=== PATIENT | female | born 1935 | race Caucasian/White ===

== ENCOUNTER 2018-02-05 13:06 | Inpatient (IN) | payer MEDICARE, BC ==
[2018-02-05] MEDS ORDERED: NITROGLYCERIN OINT 1 INCH/GM PACKET TOPICAL STA (13:22)
[2018-02-05] MEDS ORDERED: ASPIRIN 81 MG PO STA (13:22)
--- NOTE | 2018-02-05 13:25 | ED ---
General Adult HPI - General Chief complaint: Chest Pain Stated complaint: chest pain Time Seen by Provider: 02/05/18 13:13 Source: patient, RN notes reviewed Mode of arrival: wheelchair Limitations: no limitations - History of Present Illness Initial comments: Patient is a pleasant 82-year-old female presenting to the emergency Department with chest discomfort. Symptoms have been intermittent over the past 3 weeks. Discomfort is mild at this time rated 2/10. Patient is unable to describe type of discomfort she is experiencing. Patient states at times there is radiation to the left arm or back however none at this time. No associated dyspnea or diaphoresis. Patient has occasional nausea. Patient did question if her symptoms were caused by indigestion and did go see the ENT today prior to arrival. No leg pain or leg swelling. No cough or fever. Patient Did have similar symptoms once a few years ago and her workup at that time was reported as negative. Patient is not experiencing palpitations. - Related Data Home Medications Medication Instructions Recorded Confirmed Enalapril/Hydrochlorothiazide 0.5 tab PO DAILY 11/12/13 02/05/18 [Enalapril-Hctz 10-25 mg Tablet] Omeprazole 40 mg PO AC-BRKFST 11/12/13 02/05/18 Ascorbic Acid [Vitamin C] 500 mg PO DAILY 02/05/18 02/05/18 Vitamin B Complex 1 cap PO DAILY 02/05/18 02/05/18 Allergies Allergy/AdvReac Type Severity Reaction Status Date / Time codeine AdvReac Vomiting Verified 02/05/18 14:50 Review of Systems ROS Statement: Those systems with pertinent positive or pertinent negative responses have been documented in the HPI. ROS Other: All systems not noted in ROS Statement are negative. Constitutional: Denies: fever Eyes: Denies: eye pain ENT: Denies: ear pain Respiratory: Denies: cough, dyspnea Cardiovascular: Reports: chest pain. Denies: palpitations Endocrine: Denies: fatigue Gastrointestinal: Reports: nausea. Denies: abdominal pain, vomiting Genitourinary: Denies: dysuria Musculoskeletal: Denies: back pain Skin: Denies: rash Neurological: Denies: weakness Past Medical History Past Medical History: GERD/Reflux, Hypertension, Osteoarthritis (OA) History of Any Multi-Drug Resistant Organisms: None Reported Past Surgical History: Appendectomy, Bladder Surgery, Cholecystectomy, Hysterectomy, Orthopedic Surgery, Tonsillectomy Additional Past Surgical History / Comment(s): surg on vocal cords,carpel tunnel , yuliet.cataracts and hemorrhoids Past Anesthesia/Blood Transfusion Reactions: No Reported Reaction Smoking Status: Never smoker - Past Family History Father Family Medical History: Cancer General Exam Limitations: no limitations General appearance: alert, in no apparent distress Head exam: Present: atraumatic Eye exam: Present: normal appearance, PERRL Neck exam: Present: normal inspection Respiratory exam: Present: normal lung sounds bilaterally. Absent: chest wall tenderness Cardiovascular Exam: Present: tachycardia, normal heart sounds Expanded Peripheral pulses: 2+: Radial (R), Radial (L), Posterior Tibialis (R), Posterior Tibialis (L) GI/Abdominal exam: Present: soft. Absent: tenderness Extremities exam: Present: normal inspection. Absent: pedal edema, calf tenderness Back exam: Present: normal inspection. Absent: tenderness Neurological exam: Present: alert Psychiatric exam: Present: normal affect, normal mood Skin exam: Present: normal color. Absent: rash Course Vital Signs 02/05/18 02/05/18 02/05/18 13:07 13:30 14:20 Temperature 98.2 F Pulse Rate 139 H 113 H 105 H Respiratory 20 18 Rate Blood Pressure 164/78 133/77 O2 Sat by Pulse 97 100 Oximetry 02/05/18 14:30 Temperature Pulse Rate 100 Respiratory Rate Blood Pressure O2 Sat by Pulse Oximetry EKG Findings - EKG Comments: EKG Findings:: Sinus tachycardia 124. VA 152. QRS 82. QT 308. QTC 442. Left axis. Normal QRS. No acute ST change. Medical Decision Making - Medical Decision Making Patient reevaluated and resting comfortably in bed. No discomfort at this time. Heart rate has improved to 109. Patient and family updated on results and plan. D-dimer was slightly elevated and CT scan of the chest has been ordered. Case was discussed in detail with Dr. Lui, who will admit for hospital call. - Lab Data Result diagrams: 02/05/18 13:41 02/05/18 13:41 Lab Results 02/05/18 02/05/18 02/05/18 Range/Units 13:41 13:41 13:41 WBC 4.6 (3.8-10.6) k/uL RBC 4.29 (3.80-5.40) m/uL Hgb 13.5 (11.4-16.0) gm/dL Hct 42.1 (34.0-46.0) % MCV 98.1 (80.0-100.0) fL MCH 31.6 (25.0-35.0) pg MCHC 32.2 (31.0-37.0) g/dL RDW 12.2 (11.5-15.5) % Plt Count 242 (150-450) k/uL Neutrophils % 73 % Lymphocytes % 13 % Monocytes % 8 % Eosinophils % 2 % Basophils % 0 % Neutrophils # 3.4 (1.3-7.7) k/uL Lymphocytes # 0.6 L (1.0-4.8) k/uL Monocytes # 0.4 (0-1.0) k/uL Eosinophils # 0.1 (0-0.7) k/uL Basophils # 0.0 (0-0.2) k/uL PT (9.0-12.0) sec INR (<1.2) APTT (22.0-30.0) sec D-Dimer (<0.60) mg/L FEU Sodium 142 (137-145) mmol/L Potassium 3.8 (3.5-5.1) mmol/L Chloride 108 H (98-107) mmol/L Carbon Dioxide 25 (22-30) mmol/L Anion Gap 9 mmol/L BUN 28 H (7-17) mg/dL Creatinine 0.95 (0.52-1.04) mg/dL Est GFR (CKD-EPI)AfAm 64 (>60 ml/min/1.73 sqM) Est GFR (CKD-EPI)NonAf 56 (>60 ml/min/1.73 sqM) Glucose 125 H (74-99) mg/dL Calcium 9.9 (8.4-10.2) mg/dL Magnesium 2.0 (1.6-2.3) mg/dL Total Bilirubin 0.5 (0.2-1.3) mg/dL AST 27 (14-36) U/L ALT 38 (9-52) U/L Alkaline Phosphatase 67 (38-126) U/L Total Creatine Kinase 33 (30-135) U/L CK-MB (CK-2) 0.6 (0.0-2.4) ng/mL CK-MB (CK-2) Rel Index 1.8 Troponin I <0.012 (0.000-0.034) ng/mL Total Protein 6.7 (6.3-8.2) g/dL Albumin 3.8 (3.5-5.0) g/dL 02/05/18 Range/Units 13:41 WBC (3.8-10.6) k/uL RBC (3.80-5.40) m/uL Hgb (11.4-16.0) gm/dL Hct (34.0-46.0) % MCV (80.0-100.0) fL MCH (25.0-35.0) pg MCHC (31.0-37.0) g/dL RDW (11.5-15.5) % Plt Count (150-450) k/uL Neutrophils % % Lymphocytes % % Monocytes % % Eosinophils % % Basophils % % Neutrophils # (1.3-7.7) k/uL Lymphocytes # (1.0-4.8) k/uL Monocytes # (0-1.0) k/uL Eosinophils # (0-0.7) k/uL Basophils # (0-0.2) k/uL PT 9.4 (9.0-12.0) sec INR 0.9 (<1.2) APTT 21.2 L (22.0-30.0) sec D-Dimer 1.50 H (<0.60) mg/L FEU Sodium (137-145) mmol/L Potassium (3.5-5.1) mmol/L Chloride (98-107) mmol/L Carbon Dioxide (22-30) mmol/L Anion Gap mmol/L BUN (7-17) mg/dL Creatinine (0.52-1.04) mg/dL Est GFR (CKD-EPI)AfAm (>60 ml/min/1.73 sqM) Est GFR (CKD-EPI)NonAf (>60 ml/min/1.73 sqM) Glucose (74-99) mg/dL Calcium (8.4-10.2) mg/dL Magnesium (1.6-2.3) mg/dL Total Bilirubin (0.2-1.3) mg/dL AST (14-36) U/L ALT (9-52) U/L Alkaline Phosphatase (38-126) U/L Total Creatine Kinase (30-135) U/L CK-MB (CK-2) (0.0-2.4) ng/mL CK-MB (CK-2) Rel Index Troponin I (0.000-0.034) ng/mL Total Protein (6.3-8.2) g/dL Albumin (3.5-5.0) g/dL - Radiology Data Radiology results: image reviewed (Chest x-ray shows no acute process) Disposition Clinical Impression: Chest pain Disposition: ADMITTED IP TO THIS HOSP Is patient prescribed a controlled substance at d/c from ED?: No Referrals: Jack Ford MD [Primary Care Provider] - 1-2 days Decision Time: 14:58
[2018-02-05 14:01] LABS: Basophils % (A) 0 %; Eosinophils # (A) 0.1 k/uL (0-0.7); Eosinophils % (A) 2 %; HCT 42.1 % (34.0-46.0); HGB 13.5 gm/dL (11.4-16.0); Lymphocytes # (A) 0.6 k/uL (1.0-4.8); Lymphocytes % (A) 13 %; MCH 31.6 pg (25.0-35.0); MCHC 32.2 g/dL (31.0-37.0); MCV 98.1 fL (80.0-100.0); Mean Platelet Volume 6.8; Monocytes # (A) 0.4 k/uL (0-1.0); Monocytes % (A) 8 %; Neutrophils # (A) 3.4 k/uL (1.3-7.7); Neutrophils % (A) 73 %; Platelet Count 242 k/uL (150-450); RBC 4.29 m/uL (3.80-5.40); RDW 12.2 % (11.5-15.5); WBC 4.6 k/uL (3.8-10.6)
[2018-02-05 14:11] LABS: Albumin 3.8 g/dL (3.5-5.0); Calcium 9.9 mg/dL (8.4-10.2); Potassium 3.8 mmol/L (3.5-5.1); Total Bilirubin 0.5 mg/dL (0.2-1.3); Total Protein 6.7 g/dL (6.3-8.2)
[2018-02-05 14:16] LABS: INR 0.9 (<1.2); Prothrombin Time 9.4 sec (9.0-12.0)
[2018-02-05 14:23] LABS: Creatine Kinase 33 U/L (30-135); Partial Thromboplastin Time 21.2 sec (22.0-30.0)
--- NOTE | 2018-02-05 14:30 | XR ---
EXAMINATION TYPE: XR chest 2V DATE OF EXAM: 02/05/2018 COMPARISON: NONE HISTORY: Shortness of breath TECHNIQUE: Frontal and lateral views of the chest are obtained. FINDINGS: Scattered senescent parenchymal changes noted. Hyperinflation compatible with COPD. No evidence for infiltrate. No evidence for atelectasis. Heart size is stable. Mediastinal structures are stable and grossly unremarkable. No evidence for hilar prominence. Degenerative changes dorsal spine. IMPRESSION: 1. No evidence for acute pulmonary disease.
[2018-02-05 14:35] LABS: Creatine Kinase MB 0.6 ng/mL (0.0-2.4); Troponin I <0.012 ng/mL (0.000-0.034)
[2018-02-05 14:37] LABS: D-Dimer 1.5 mg/L FEU (<0.60)
[2018-02-05] MEDS ORDERED: NITROGLYCERIN SL TABS 0.4 MG TAB SUBLINGUAL PRN (14:58)
--- NOTE | 2018-02-05 15:38 | CT ---
EXAMINATION TYPE: CT angio chest DATE OF EXAM: 02/05/2018 COMPARISON: None HISTORY: Chest pain CT DLP: 332.8 mGycm CONTRAST: CT chest with contrast and 3D reconstruction with MIP imaging is performed with IV Contrast, patient injected with 100 mL of Isovue 370. Contrast-enhanced CT of the chest was performed through the course of the pulmonary arteries with beena g and mediastinal window settings submitted. 3D reconstruction with MIP imaging was also performed. PULMONARY ARTERIES: The pulmonary arteries and their major tributaries are patent. I do not see ashutosh dence for sizable filling defect to suggest pulmonary embolic process. LUNGS: The lungs are clear and free of infiltrate. No evidence for atelectasis. No pulmonary nodule or mass is detected. No pleural effusion. MEDIASTINUM: Thoracic aorta is of normal caliber,however, evaluation is limited given timing of the contrast bolus. If there is concern for thoracic aortic pathology consider HUE. Correlate clinicall y . The heart is not enlarged. No evidence for mediastinal mass. No mediastinal lymph nodes greater than 1cm. HILAR STRUCTURES: No evidence for mass. No hilar lymph nodes greater than 1 cm. UPPER ABDOMEN: No significant abnormality is seen. Renal cystic changes noted. IMPRESSION: 1. No evidence for Pulmonary embolism at this time.
--- NOTE | 2018-02-05 17:51 | HP ---
HISTORY AND PHYSICAL DATE OF SERVICE: 02/05/2018 CHIEF COMPLAINTS: Chest pain. HISTORY OF PRESENT ILLNESS: This 82-year-old woman with a past medical history of multiple medical problems including GERD, hypertension, DJD, bladder surgery, cholecystectomy being followed by Dr. Ford in the outpatient setting, was complaining of chest pain on and off for several days. The pain is felt in the anterior part of the chest radiating to the back sometimes. The patient came to [facility] and was admitted to the hospital further evaluation and treatment. There is no history of radiation or other symptoms. No history of fever, rigors or chills. PAST MEDICAL HISTORY: History of GERD, hypertension, DJD, history of appendectomy, bladder surgery, cholecystectomy. MEDICATIONS: Prior to admission home medications are: 1. Vitamin B complex 1 p.o. daily. 2. Vitamin C 500 daily. 3. Omeprazole 40 mg daily. 4. Enalapril hydrochlorothiazide 10/21 0.5 mg daily. ALLERGIES: ALLERGIES ARE CODEINE. FAMILY HISTORY: History of cancer in the family. SOCIAL HISTORY: No history of smoking. No history of alcohol intake. REVIEW OF SYSTEMS: ENT: Diminished hearing and diminished vision. CARDIOVASCULAR as mentioned earlier. Respirations: No cough or hemoptysis. GI : No nausea or vomiting. no dysuria. Nervous system: No numbness or weakness. Allergy/Immunology: No asthma or hayfever. Musculoskeletal System: As mentioned earlier. Hematology/Oncology: No history of anemia. Endocrine: No history of diabetes or hypothyroidism. Constitutional: As mentioned earlier. Dermatology: Negative. Rheumatology: Negative. Psychiatry: As mentioned earlier. PHYSICAL EXAMINATION: The patient is alert and oriented times three. VITAL SIGNS: Pulse is 108, blood pressure 120/70, respirations 16, temperature 98.2, pulse ox 97% on 2 L. HEENT: Conjunctivae normal. NECK: No jugular venous distention. CARDIOVASCULAR: S1, S2 muffled. RESPIRATORY: Breath sounds diminished in the bases. No rhonchi. No crackles. ABDOMEN: Soft, nontender. No mass palpable. LEGS: Are no edema. No swelling. Central nervous system: Higher functions as mentioned earlier. Moves all four extremities. No focal deficits. Lymphatics: No lymph nodes palpable in the neck, axillae or groin. Skin: No ulcer. No rash. No bleeding. LAB STUDIES: WBC 12.8, hemoglobin 13.5, D. dimer 1.5, GFR is 125. ASSESSMENT: 1. Chest pain, possible unstable angina. 2. Hypertension. 3. History of degenerative joint disease. 4. History of gastroesophageal reflux disease. 5. History of appendectomy. 6. History of cholecystectomy. RECOMMENDATIONS AND DISCUSSION: Recommend to continue current medications. Rule out myocardial infarction. Cardiology consultation. Possible stress test. Resume the home medications. Guarded prognosis because of multiple complex medical issues. D-dimer slightly elevated but the CT angio of the chest was negative for PE. I would also recommend UA with micro. The chest x- ray which was reviewed personally by me showed no acute abnormality. Copy of this being forwarded to Dr. Ford who is the primary physician. MMROBEL / SONIAN: [id number] / MTDD
[2018-02-05 19:32] LABS: Appearance,Urine Clear (Clear); Bacteria,Urine Rare /hpf; Bilirubin,Urine Negative (Negative); Blood,Urine Negative (Negative); Color,Urine Yellow; Glucose,Urine (UA) Negative (Negative); Ketones,Urine Trace (Negative); Leukocyte Esterase,Urine Small (Negative); Nitrite,Urine Negative (Negative); PH, Urine 5.5 (5.0-8.0); Protein,Urine Negative (Negative); RBC,Urine 1 /hpf (0-5); Urobilinogen,Urine <2.0 mg/dL (<2.0); WBC,Urine 8 /hpf (0-5)
[2018-02-05 19:36] LABS: Specific Gravity,Urine 1.046 (1.001-1.035)
[2018-02-05] MEDS ORDERED: CALCIUM CARBONATE 500 MG CHEWABLE PO STA (19:59)
[2018-02-05] MEDS: NITROGLYCERIN OINT 1 INCH/GM PACKET TOPICAL SCH (20:02)
[2018-02-05 21:20] LABS: Creatine Kinase 30 U/L (30-135)
[2018-02-05 21:33] LABS: Creatine Kinase MB 0.7 ng/mL (0.0-2.4); Troponin I <0.012 ng/mL (0.000-0.034)
[2018-02-06] MEDS: NITROGLYCERIN OINT 1 INCH/GM PACKET TOPICAL SCH ×2 (01:07→02:52)
[2018-02-06 02:46] LABS: Basophils % (A) 1 %; Eosinophils # (A) 0.2 k/uL (0-0.7); Eosinophils % (A) 5 %; HCT 35.5 % (34.0-46.0); HGB 11.8 gm/dL (11.4-16.0); Lymphocytes # (A) 0.9 k/uL (1.0-4.8); Lymphocytes % (A) 21 %; MCH 31.9 pg (25.0-35.0); MCHC 33.1 g/dL (31.0-37.0); MCV 96.4 fL (80.0-100.0); Monocytes # (A) 0.4 k/uL (0-1.0); Monocytes % (A) 8 %; Neutrophils # (A) 2.6 k/uL (1.3-7.7); Neutrophils % (A) 62 %; Platelet Count 211 k/uL (150-450); RBC 3.69 m/uL (3.80-5.40); RDW 12.3 % (11.5-15.5); WBC 4.2 k/uL (3.8-10.6)
[2018-02-06 03:00] LABS: Calcium 9.3 mg/dL (8.4-10.2)
[2018-02-06 03:07] LABS: Creatine Kinase 23 U/L (30-135)
[2018-02-06 03:21] LABS: Creatine Kinase MB 0.5 ng/mL (0.0-2.4); Troponin I <0.012 ng/mL (0.000-0.034)
[2018-02-06] MEDS: ASCORBIC ACID 500 MG TAB PO SCH (08:00)
[2018-02-06] MEDS: LISINOPRIL-HCTZ 10-12.5 MG 1 EACH TAB PO SCH (08:00)
[2018-02-06] MEDS: PANTOPRAZOLE 40 MG TABLET PO SCH (08:00)
[2018-02-06] MEDS ORDERED: CAFFEINE CITRATE 60 MG/3 ML VIAL IV PRN (08:59)
[2018-02-06] MEDS ORDERED: REGADENOSON 0.4 MG/5 ML SYRINGE IV ONE (08:59)
[2018-02-06] MEDS ORDERED: NON-FORMULARY DRUG (Vitamin B Complex [Vitamin B Complex] 1 CAP) PO SCH (09:00)
[2018-02-06] MEDS ORDERED: ASPIRIN 81 MG PO SCH (09:00)
[2018-02-06] MEDS ORDERED: ASPIRIN 325 MG TAB PO SCH (09:00)
--- NOTE | 2018-02-06 09:32 | P.CRDCN ---
History of Present Illness History of present illness: This is a pleasant 82-year-old female past medical history significant for hypertension and gastroesophageal reflux disease. She denies history of coronary artery disease, dyslipidemia or diabetes mellitus. She has never seen a quality system manager for any reason. We have been asked to see her in consultation for chest pain. She states for the last 4 weeks she has been feeling a burning sensation in the mid-sternal region with radiation through to the back. She also describes feeling nauseated with the discomfort with no actual vomiting. The pain is intermittent with no specific aggravating or alleviating factors. Pain comes at rest mostly. She had been attributing this to her reflux disease for which she takes omeprazole. She went to see Dr. Shama Hernandez yesterday and he performed a scope in the office and told her her reflux was not the culprit of her pain and recommended she come here for evaluation. She denies radiation to the arm, neck or jaw. She denies shortness of breath, dizziness, palpitations or vomiting. At the time of my exam she is resting comfortably in bed and is pain free. She does describe feeling nauseated. Last night she had an episode after eating dinner of burning in her throat. This felt to her much more typical of her reflux. She was given a Tums and the burning subsided. This discomfort was different than the symptoms she has been feeling for the past 4 weeks. She states she is fairly active on a regular basis and walks up and down her long driveway daily for approximately 20 minutes. She does use a cane due to unsteady gait at times. EKG reveals sinus mechanism with no acute ST or T-wave abnormalities noted. Chest xray negative for an acute cardiopulmonary process. Laboratory data reviewed, WBC 4.2, hgb 11.8, plt 211, d-dimer 1.5, sodium 139, potassium 4.0, magnesium 2.0, creatinine 0.98, cardiac enzymes negative 3, LDL 95, HDL 64. Current cardiac medications include enalapril/hctz 10/25 mg daily. At the time of my exam: CONSTITUTIONAL: Denies fever. Denies chills. EYES: Denies blurred vision. Denies vision changes. Denies eye pain. EARS, NOSE, MOUTH & THROAT: Denies headache. Denies sore throat. Denies ear pain. CARDIOVASCULAR: Denies chest pain. Denies shortness of breath. Denies orthopnea. Denies PND. Denies palpitations. RESPIRATORY: Denies cough. GASTROINTESTINAL: Denies abdominal pain. Denies diarrhea. Denies constipation. Denies nausea. Denies vomiting. MUSCULOSKELETAL: Denies myalgias. INTEGUMENTARY: Denies pruitis. Denies rash. NEUROLOGIC: Denies numbness. Denies tingling. Denies weakness. PSYCHIATRIC: Denies anxiety. Denies depression. ENDOCRINE: Denies fatigue. Denies weight change. Denies polydipsia. Denies polyurina. GENITOURINARY: Denies burning, hematuria or urgency with micturation. HEMATOLOGIC: Denies history of anemia. Denies bleeding. Blood pressure 114/71 heart rate 99 afebrile and maintaining oxygen saturation on room air GENERAL: This is a 82-year-old female in no apparent distress at the time of my examination. HEENT: Head is atraumatic, normocephalic. Pupils are equal, round. Sclerae anicteric. Conjunctivae are clear. Mucous membranes of the mouth are moist. Neck is supple. There is no jugular venous distention. No carotid bruit is heard. LUNGS: Clear to auscultation no wheezes, rales or rhonchi. No chest wall tenderness is noted on palpation or with deep breathing. HEART: Regular rate and rhythm without murmurs, rubs or gallops. S1 and S2 heard. ABDOMEN: Soft, nontender. Bowel sounds are heard. No organomegaly noted. EXTREMITIES: No evidence of peripheral edema and no calf tenderness noted. VASCULAR: Radial and dorsalis pedis pulses palpated, no evidence of clubbing. NEUROLOGIC: Patient is awake, alert and oriented x3. ASSESSMENT Chest pain at rest, atypical for angina. An acute coronary event has been ruled out with no EKG evidence of ischemia and negative cardiac enzymes Hypertension Gastroesophageal reflux disease PLAN An acute coronary event has been ruled out with no EKG evidence of ischemia and negative cardiac enzymes. Obtain 2D echocardiogram and doppler study to assess cardiac structure and function. Perform Lexiscan stress test to assess for reversible cardiac ischemia. If stress test is normal she is stable from a cardiac perspective, if abnormal we will consider coronary angiography. Thank you kindly for this consultation. Nurse Practitioner note has been reviewed, I agree with a documented findings and plan of care. Patient was seen and examined. Past Medical History Past Medical History: GERD/Reflux, Hypertension, Osteoarthritis (OA) Additional Past Medical History / Comment(s): cataracats(has sx-lens implants), past colon polyps-benign. 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 History of Any Multi-Drug Resistant Organisms: None Reported Past Surgical History: Appendectomy, Bladder Surgery, Cholecystectomy, Hysterectomy, Orthopedic Surgery, Tonsillectomy Additional Past Surgical History / Comment(s): surg on vocal cords,carpel tunnel , yuliet.cataracts and hemorrhoids, lt knee replacement, colonoscopy Past Anesthesia/Blood Transfusion Reactions: No Reported Reaction Smoking Status: Former smoker - Past Family History Father Family Medical History: Cancer Mother Family Medical History: Myocardial Infarction ([place]) Medications and Allergies Home Medications Medication Instructions Recorded Confirmed Type Enalapril/Hydrochlorothiazide 0.5 tab PO DAILY 11/12/13 02/05/18 History [Enalapril-Hctz 10-25 mg Tablet] Omeprazole 40 mg PO AC-BRKFST 11/12/13 02/05/18 History Ascorbic Acid [Vitamin C] 500 mg PO DAILY 02/05/18 02/05/18 History Vitamin B Complex 1 cap PO DAILY 02/05/18 02/05/18 History Allergies Allergy/AdvReac Type Severity Reaction Status Date / Time codeine AdvReac Vomiting Verified 02/05/18 14:50 Physical Exam Vitals: Vital Signs Temp Pulse Pulse Resp BP BP Pulse Ox 02/06/18 04:00 16 02/06/18 03:31 98.6 F 71 16 116/65 97 02/06/18 00:00 98.3 F 76 16 104/64 97 02/05/18 20:00 16 02/05/18 19:21 98.7 F 91 16 108/69 96 02/05/18 16:45 98.2 F 116 H 18 144/74 96 02/05/18 16:31 98.3 F 110 H 18 100/55 98 02/05/18 16:10 108 H 16 120/70 97 02/05/18 15:40 101 H 18 121/67 97 02/05/18 15:10 109 H 18 120/57 98 02/05/18 14:40 102 H 18 98/78 98 02/05/18 14:30 100 02/05/18 14:20 105 H 02/05/18 13:30 113 H 18 133/77 100 02/05/18 13:07 98.2 F 139 H 20 164/78 97 Intake and Output 02/05/18 02/06/18 02/06/18 22:59 06:59 14:59 Other: Voiding Method Toilet Toilet # Voids 1 Weight 77 kg Results 02/06/18 02:18 02/06/18 02:18 Cardiac Enzymes 02/05/18 02/05/18 02/05/18 Range/Units 13:41 13:41 20:41 AST 27 (14-36) U/L CK-MB (CK-2) 0.6 0.7 (0.0-2.4) ng/mL Troponin I <0.012 <0.012 (0.000-0.034) ng/mL 02/06/18 Range/Units 02:18 AST (14-36) U/L CK-MB (CK-2) 0.5 (0.0-2.4) ng/mL Troponin I <0.012 (0.000-0.034) ng/mL Coagulation 02/05/18 Range/Units 13:41 PT 9.4 (9.0-12.0) sec APTT 21.2 L (22.0-30.0) sec Lipids 02/06/18 Range/Units 02:18 Triglycerides 47 (<150) mg/dL Cholesterol 168 (<200) mg/dL HDL Cholesterol 64 H (40-60) mg/dL CBC 02/05/18 02/06/18 Range/Units 13:41 02:18 WBC 4.6 4.2 (3.8-10.6) k/uL RBC 4.29 3.69 L (3.80-5.40) m/uL Hgb 13.5 11.8 (11.4-16.0) gm/dL Hct 42.1 35.5 (34.0-46.0) % Plt Count 242 211 (150-450) k/uL Comprehensive Metabolic Panel 02/05/18 02/06/18 Range/Units 13:41 02:18 Sodium 142 139 (137-145) mmol/L Potassium 3.8 4.0 (3.5-5.1) mmol/L Chloride 108 H 108 H (98-107) mmol/L Carbon Dioxide 25 27 (22-30) mmol/L BUN 28 H 25 H (7-17) mg/dL Creatinine 0.95 0.98 (0.52-1.04) mg/dL Glucose 125 H 102 H (74-99) mg/dL Calcium 9.9 9.3 (8.4-10.2) mg/dL AST 27 (14-36) U/L ALT 38 (9-52) U/L Alkaline Phosphatase 67 (38-126) U/L Total Protein 6.7 (6.3-8.2) g/dL Albumin 3.8 (3.5-5.0) g/dL Current Medications Generic Name Dose Route Start Last Admin Trade Name Freq PRN Reason Stop Dose Admin Ascorbic Acid 500 mg 02/06/18 12:00 Vitamin C PO 1200 [facility] Aspirin 81 mg 02/06/18 09:00 Aspirin PO DAILY [facility] Lisinopril/HCTZ 1 each 02/06/18 09:00 Zestoretic 10-12.5 PO DAILY [facility] Nitroglycerin 0.4 mg 02/05/18 14:58 Nitrostat SUBLINGUAL Q5M PRN Chest Pain Pantoprazole Sodium 40 mg 02/06/18 07:30 Protonix PO AC-BRKFST [facility] Sodium Chloride 10 ml 02/05/18 21:00 02/05/18 20:12 Saline Flush IV 10 ml BID [facility] Administration Intake and Output 02/05/18 02/06/18 02/06/18 22:59 06:59 14:59 Other: Voiding Method Toilet Toilet # Voids 1 Weight 77 kg 02/06/18 02:18 02/06/18 02:18
--- NOTE | 2018-02-06 10:05 | ECHOF ---
Referral Reason:cp MEASUREMENTS -------- HEIGHT: 167.6 cm WEIGHT: 76.7 kg BP: RVIDd: 2.1 cm (< 3.3) IVSd: 1.2 cm (0.6 - 1.1) LVIDd: 2.5 cm (3.9 - 5.3) LVPWd: 1.4 cm (0.6 - 1.1) IVSs: 1.5 cm LVIDs: 1.5 cm LVPWs: 1.4 cm LAESV Index (A-L): 20.86 ml/m Ao Diam: 3.4 cm (2.0 - 3.7) AV Cusp: 2.3 cm (1.5 - 2.6) LA Diam: 3.8 cm (2.7 - 3.8) MV E Shyam: 0.59 m/s MV DecT: 148 ms MV A Shyam: 1.05 m/s MV E/A Ratio: 0.57 RAP: 5.00 mmHg RVSP: 18.11 mmHg FINDINGS -------- Sinus rhythm. This was a technically adequate study. The left ventricular size is normal. There is mild concentric left ventricular hypertrophy. Overa ll left ventricular systolic function is normal with, an EF between 55 - 60 %. The right ventricle is normal in size. Normal LA size by volume 22+/-6 ml/m2. The right atrial size is normal. The aortic valve is trileaflet and appears structurally normal. The mitral valve leaflets are mildly thickened. There is trace mitral regurgitation. Trace tricuspid regurgitation present. There is no evidence of pulmonary hypertension. The right ventricular systolic pressure, as measured by Doppler, is 18.11mmHg. Trace/mild (physiologic) pulmonic regurgitation. The aortic root size is normal. IVC Not well visulized. There is no pericardial effusion. CONCLUSIONS -------- 1. Sinus rhythm. 2. This was a technically adequate study. 3. The left ventricular size is normal. 4. There is mild concentric left ventricular hypertrophy. 5. Overall left ventricular systolic function is normal with, an EF between 55 - 60 %. 6. Normal LA size by volume 22+/-6 ml/m2. 7. The aortic valve is trileaflet and appears structurally normal. 8. The mitral valve leaflets are mildly thickened. 9. There is trace mitral regurgitation. 10. Trace tricuspid regurgitation present. 11. There is no evidence of pulmonary hypertension. 12. Trace/mild (physiologic) pulmonic regurgitation. 13. The aortic root size is normal. 14. IVC Not well visulized. 15. There is no pericardial effusion. POTATO CHIP FRIER: Ivory Husain RDCS
--- NOTE | 2018-02-06 13:20 | NM ---
EXAMINATION TYPE: NM stress lexiscan cardiolite DATE OF EXAM: 02/06/2018 COMPARISON: NONE HISTORY: Chest pain TECHNIQUE: After the intravenous administration of 9.3 mCi Tc 99m Sestamibi - Cardiolite resting SPE CT images acquired 45 minutes post injection. The patient received 0.4mg Lexiscan, 26.1 mCi Tc 99m Sestamibi - Stress images obtained [address] injection FINDINGS: Review of stress and rest SPECT images demonstrates decreased radiopharmaceutical uptake along the in ferolateral left ventricle on stress as compared to rest images. Gated analysis shows normal wall mot ion with an estimated left ventricular ejection fraction of 81 %. IMPRESSION: Pharmacologically induced left ventricular myocardial ischemia as described. Consider echocardiograph ic correlation for elevated ejection fraction.
[2018-02-06] MEDS ORDERED: ALPRAZolam 0.5 MG TAB PO PRN (14:43)
[2018-02-06] MEDS ORDERED: ALPRAZolam 0.25 MG TAB PO PRN (14:43)
[2018-02-06] MEDS ORDERED: SODIUM CHLORIDE 0.9% 1,000 ML in EMPTY BAG 1 BAG IV ONE (14:43)
--- NOTE | 2018-02-06 15:37 | EST ---
EXERCISE STRESS AGE: 82 SEX: F HT: 66" WT: 169 PROTOCOL: Lexiscan Cardiolite Stress Test HEART RATE REST: 111 BLOOD PRESSURE REST: 129/96 MAXIMUM HEART RATE ACHIEVED: 159 MAXIMUM BLOOD PRESSURE: 129/95 85% MPHR: 116 100% MPHR: 136 INDICATIONS: Chest pain. CLINICAL INFORMATION: Baseline rhythm is sinus mechanism, rate of 111, normal axis and intervals, nonspecific ST-T wave changes, baseline blood pressure 129/96 mmHg. Patient received an injection of Lexiscan. Electrocardiographic monitoring revealed no evidence of diagnostic ischemic ST deviation. Cardiolite was injected per protocol. An episode of supraventricular tachycardia was noted and resolved spontaneously. CONCLUSION: 1. Nondiagnostic electrocardiograph stress testing with an episode of what appears to be AV taqueria reentry tachycardia. 2. Nuclear images will be reported separately. MMODL / IJN: [id number] /
--- NOTE | 2018-02-06 15:38 | P.PN ---
Progress Note - Text Lexiscan stress test reported as from a clot in his left ventricular myocardial ischemia with decreased radiopharmaceutical uptake along the inferior lateral left ventricle on stress compared to rest images. This has been explained to the patient and her daughter in detail, we recommend proceeding with cardiac catheterization. I have discussed the risks, benefits and alternative therapies for the above-mentioned procedure and for both sedation/analgesia as well as necessary blood product administration, if indicated, as they pertain to this patient. The patient has indicated understanding and acceptance of the risks and procedures discussed. Questions have been answered appropriately and she is agreeable to move forward with the above-stated procedure.
--- NOTE | 2018-02-06 16:01 | P.PN ---
Subjective 82-year-old admitted with chest pain mostly. To be gastroesophageal reflux disease underwent stress test which is positive for inducible ischemia because of which patient will undergo cardiac catheterization.Constitutional: Denied any fatigue denied any fever. Cardio vascular: denied any chest pain, palpitations Gastrointestinal denied any nausea vomiting Pulmonary: Denied any shortness of breath cough Neurologic denied any new focal deficits All inpatient medications were reviewed and appropriate changes in these medications as dictated in the interval history and assessment and plan. Objective - Vital Signs Vital signs: Vital Signs Temp 98.1 F 02/06/18 15:37 Pulse 120 H 02/06/18 15:37 Resp 18 02/06/18 15:37 BP 91/53 02/06/18 15:37 Pulse Ox 98 02/06/18 15:37 Intake & Output 02/05/18 02/06/18 02/06/18 18:59 06:59 18:59 Intake Total 440 Balance 440 Weight 77 kg Intake: Oral 240 Other 200 Other: Voiding Method Toilet Toilet Toilet # Voids 1 - Exam PHYSICAL EXAMINATION: GENERAL: The patient is alert and oriented x3, not in any acute distress. Well developed, well nourished. HEENT: Pupils are round and equally reacting to light. EOMI. No scleral icterus. No conjunctival pallor. Normocephalic, atraumatic. No pharyngeal erythema. No thyromegaly. CARDIOVASCULAR: S1 and S2 present. No murmurs, rubs, or gallops. PULMONARY: Chest is clear to auscultation, no wheezing or crackles. ABDOMEN: Soft, nontender, nondistended, normoactive bowel sounds. No palpable organomegaly. MUSCULOSKELETAL: No joint swelling or deformity. EXTREMITIES: No cyanosis, clubbing, or pedal edema. NEUROLOGICAL: Gross neurological examination did not reveal any focal deficits. SKIN: No rashes. - Labs CBC & Chem 7: 02/06/18 02:18 02/06/18 02:18 Labs: Abnormal Lab Results - Last 24 Hours (Table) 02/05/18 02/06/18 02/06/18 Range/Units 19:05 02:18 02:18 RBC (3.80-5.40) m/uL Lymphocytes # (1.0-4.8) k/uL Chloride 108 H (98-107) mmol/L BUN 25 H (7-17) mg/dL Glucose 102 H (74-99) mg/dL Total Creatine Kinase 23 L (30-135) U/L HDL Cholesterol 64 H (40-60) mg/dL Ur Specific [place] 1.046 H (1.001-1.035) Urine Ketones Trace H (Negative) Ur Leukocyte Esterase Small H (Negative) Urine WBC 8 H (0-5) /hpf Urine Bacteria Rare H (None) /hpf 02/06/18 Range/Units 02:18 RBC 3.69 L (3.80-5.40) m/uL Lymphocytes # 0.9 L (1.0-4.8) k/uL Chloride (98-107) mmol/L BUN (7-17) mg/dL Glucose (74-99) mg/dL Total Creatine Kinase (30-135) U/L HDL Cholesterol (40-60) mg/dL Ur Specific [place] (1.001-1.035) Urine Ketones (Negative) Ur Leukocyte Esterase (Negative) Urine WBC (0-5) /hpf Urine Bacteria (None) /hpf Assessment and Plan Plan: -Chest pain with positive stress test patient will undergo cardiac catheterization tomorrow -Gastroesophageal reflux disease -Hypertension
[2018-02-07] MEDS ORDERED: ASPIRIN 81 MG PO ONE (06:00)
[2018-02-07] MEDS ORDERED: ATORVASTATIN 80 MG TAB PO ONE (06:00)
[2018-02-07] MEDS: LISINOPRIL-HCTZ 10-12.5 MG 1 EACH TAB PO SCH (06:09)
[2018-02-07] MEDS: PANTOPRAZOLE 40 MG TABLET PO SCH (06:09)
[2018-02-07] MEDS ORDERED: VERAPAMIL 2.5 MG/ML 2 ML AMP ONE (10:02)
[2018-02-07] MEDS ORDERED: LIDOCAINE 1% INJ 10MG/ML (20 ML MDV) ONE (10:02)
[2018-02-07] MEDS ORDERED: HEPARIN SODIUM 1,000 UN/ML (10ML VL) ONE (10:02)
[2018-02-07] MEDS ORDERED: fentaNYL (PF) 50 MCG/ML 2 ML AMP ONE (10:02)
[2018-02-07] MEDS ORDERED: MIDAZOLAM 2 MG/2 ML VIAL ONE (10:24)
[2018-02-07] MEDS ORDERED: fentaNYL (PF) 50 MCG/ML 2 ML AMP IVP ONE (10:24)
[2018-02-07] MEDS ORDERED: LIDOCAINE 1% (PF) 10MG/ML VIAL SQ ONE (10:26)
[2018-02-07] MEDS ORDERED: MIDAZOLAM 2 MG/2 ML VIAL IVP ONE (10:27)
[2018-02-07] MEDS ORDERED: IV FLUID CONTINUATION 850 ML IV ONE (10:28)
[2018-02-07] MEDS ORDERED: VERAPAMIL SYRINGE (5 MG/10 ML) INTRAARTER ONE (10:28)
[2018-02-07] MEDS ORDERED: IOPAMIDOL-370 125ML BTL INJ ONE (10:41)
[2018-02-07] MEDS ORDERED: RX INFO: IV CONTRAST WAS GIVEN 1 EACH MISC MISCELLANE PRN (10:49)
[2018-02-07] MEDS ORDERED: SODIUM CHLORIDE 0.9% 1,000 ML IV SCH (11:00)
[2018-02-07 11:09] VITALS: RESP 18; TEMP 96.4
[2018-02-07] MEDS: ASCORBIC ACID 500 MG TAB PO SCH (11:20)
--- NOTE | 2018-02-07 11:44 | CC ---
CARDIAC CATHETERIZATION REPORT Mrs. Layne is an 82-year-old female with no prior documented coronary artery disease who presented to the hospital with symptoms of chest discomfort. She had no evidence of enzymatic changes and underwent a myocardial perfusion imaging that was reported showing evidence of stress induced ischemia. In view of that, recommendation made regarding cardiac catheterization. The procedures, risks and complication were discussed with the patient who is in full understanding and agreement. PROCEDURE: Patient was brought to record label intern in a fasting semi-sedated state after receiving fentanyl and Benadryl and achieving moderate conscious sedated state. Using Xylocaine anesthesia and Seldinger technique, a 6-Ecuadorean sheath was introduced in the right radial artery. Selective right and left coronary angiography performed using 5-Ecuadorean 3.5 bend right and left Chaparro catheter, multiple views of coronary artery including hemiaxial views were obtained. Following that a 5-Ecuadorean tight pigtail catheter was introduced in the left ventricle and a 30 degree BECKER view of the left ventricle was obtained. Following that, catheter and sheaths were removed, hemostasis was obtained with deployment of a TR band. There was no immediate complication. Patient was returned to her room in stable condition. Of note, the patient received 4000 units of intravenous heparin as well as intra-arterial verapamil. FINDINGS: LEFT MAIN: This is a short-sized vessel, bifurcating into left circumflex, left anterior descending artery. Left main coronary artery has no evidence of high-grade stenosis. LEFT ANTERIOR DESCENDING ARTERY: This is a large-sized vessel, reaching toward the apex with a wraparound apex segment, tortuous in the mid and distal segment, giving rise to a small diagonal branch. The left anterior descending artery has no evidence of high- grade stenosis. LEFT CIRCUMFLEX: This is a nondominant, large size vessel, giving rise to 2 obtuse marginal branches. The first one is very proximal right. The left circumflex as well as branches have no evidence of obstructive coronary artery disease. RIGHT CORONARY ARTERY: This is a dominant vessel, large in caliber, tortuous in the distal segment. The right coronary artery as well as it branches have no evidence of obstructive coronary artery disease. LEFT VENTRICULOGRAM: Left ventriculogram is performed in 30 degree BECKER view and revealed normal left ventricular size and systolic function. Ejection fraction 60%. There was no significant mitral regurgitation. HEMODYNAMICS: There was no gradient across the aortic valve. The left ventricular end- diastolic pressure was 8-10 mmHg. CONCLUSION: 1. Normal coronary arteries. 2. Normal left ventricular size and systolic function. RECOMMENDATION: In view of finding in the anatomy, recommend continue medical therapy with aggressive risk modifications being initiated. Those findings and recommendation were discussed with the patient and her family who are in full understanding and agreement. Duration of the procedure is 20 minutes. MMANNETTE / SONIAN: [id number] /
[2018-02-07 14:39] VITALS: BP 98/55; PULSE 108
--- NOTE | 2018-02-07 15:25 | P.DS ---
Providers Date of admission: 02/06/18 21:26 Attending physician: Carmen Lui Consults: 02/05/18 14:58 Consult Physician Urgent Consulting Provider: Chay Cowart Consult Reason/Comments: cp Do you want consulting provider notified?: Yes Primary care physician: Jack Ford Hospital Course: Patient underwent cardiac catheterization because of abnormal stress test which did not show any significant atherosclerotic coronary occlusive disease that needs stents, patient blood pressure is low normal and will not require antidepressant medications. Patient is advised to check blood pressure twice a day at home and take it to PCPs office. PHYSICAL EXAMINATION: GENERAL: The patient is alert and oriented x3, not in any acute distress. Well developed, well nourished. HEENT: Pupils are round and equally reacting to light. EOMI. No scleral icterus. No conjunctival pallor. Normocephalic, atraumatic. No pharyngeal erythema. No thyromegaly. CARDIOVASCULAR: S1 and S2 present. No murmurs, rubs, or gallops. PULMONARY: Chest is clear to auscultation, no wheezing or crackles. ABDOMEN: Soft, nontender, nondistended, normoactive bowel sounds. No palpable organomegaly. MUSCULOSKELETAL: No joint swelling or deformity. EXTREMITIES: No cyanosis, clubbing, or pedal edema. NEUROLOGICAL: Gross neurological examination did not reveal any focal deficits. SKIN: No rashes. Keiry chronic medical problems hospitalization course please refer to my dictation of progress note from yesterday for Plan - Discharge Summary Discharge Rx Participant: No New Discharge Prescriptions: Discontinued Enalapril/Hydrochlorothiazide [Enalapril-Hctz 10-25 mg Tablet] 0.5 tab PO DAILY No Action Omeprazole 40 mg PO AC-BRKFST Vitamin B Complex 1 cap PO DAILY Ascorbic Acid [Vitamin C] 500 mg PO DAILY Discharge Medication List Omeprazole 40 mg PO AC-BRKFST 11/12/13 [History] Ascorbic Acid [Vitamin C] 500 mg PO DAILY 02/05/18 [History] Vitamin B Complex 1 cap PO DAILY 02/05/18 [History] Follow up Appointment(s)/Referral(s): Chay Cowart MD [STAFF PHYSICIAN] - 02/14/18 4:30 pm Jack Ford MD [Primary Care Provider] - 3 Days (OFFICE CLOSED PT TO CALL AND MAKE APPOINTMENT. ) Patient Instructions/Handouts: *Surgery [facility] - After Heart Catheterization - Sample Card Maker Instructions, Chest Pain (DC) Activity/Diet/Wound Care/Special Instructions: See Activity Restriction Instructions Discharge Disposition: HOME SELF-CARE
== END 2018-02-07 16:04 | disposition home or self-care (01) | DRG 287 ==
LOC: EC 13:06 → 1SOBS 14:59 → OBSVTOIN 02-06 21:26
PROVIDERS: ADMIT Hospitalist; ATTEND Hospitalist
PROC: B2111ZZ Fluoroscopy of Multiple Coronary Arteries using Low Osmolar Contrast (ICD-10-PCS; 2018-02-07)
PROC: B2151ZZ Fluoroscopy of Left Heart using Low Osmolar Contrast (ICD-10-PCS; 2018-02-07)
PROC: 4A023N7 Measurement of Cardiac Sampling and Pressure, Left Heart, Percutaneous Approach (ICD-10-PCS; principal; 2018-02-07 09:00)
DX: R07.9 Chest pain, unspecified (principal); I10 Essential (primary) hypertension; K21.9 Gastro-esophageal reflux disease without esophagitis; Z80.9 Family history of malignant neoplasm, unspecified; Z82.49 Family history of ischemic heart disease and other diseases of the circulatory system; Z86.010 Personal history of colon polyps; Z87.891 Personal history of nicotine dependence; Z90.49 Acquired absence of other specified parts of digestive tract; Z90.710 Acquired absence of both cervix and uterus; Z98.42 Cataract extraction status, left eye; Z98.41 Cataract extraction status, right eye; Z96.1 Presence of intraocular lens; Z96.652 Presence of left artificial knee joint; Z88.5 Allergy status to narcotic agent; Z79.899 Other long term (current) drug therapy; M19.90 Unspecified osteoarthritis, unspecified site; R26.81 Unsteadiness on feet; R94.39 Abnormal result of other cardiovascular function study
CPT/HCPCS: 36415; 71046; 71275; 78452; 80048; 80053; 80061; 81001; 82550; 82553; 83735; 84443; 84484; 85025; 85379; 85610; 85730; 93005; 93017; 93306; 93458; 99285